=== PATIENT | female | born 1985 | race Caucasian/White ===

== ENCOUNTER 2019-08-10 20:31 | Inpatient (IN) | payer BC, SELFPAY ==
[2019-08-10 22:30] VITALS: BMI 36.2
[2019-08-10 22:31] VITALS: BP 131/100; PULSE 119
[2019-08-10 22:31] LABS: Basophils Percent Auto 0.3 % (0.2-1.2); Eosinophils Absolute Auto 0.1 K/mm3 (0-0.3); Eosinophils Percent Auto 0.4 % (0-4.4); Hematocrit 39.7 % (37.0-47.0); Hemoglobin 13.1 g/dL (12.0-15.0); Immature Granulocyte Absolute 0.07 K/mm3 (0.00-0.031); Immature Granulocyte Percent A 0.6 % (0-0.5); Lymphocytes Absolute Auto 2.01 K/mm3 (0.9-3.2); Lymphocytes Percent Auto 16.6 % (18.3-44.2); Mean Corpuscular Hemoglobin 28.7 pg (26-34); Mean Corpuscular Volume 87.1 fl (80-100); Mean Platelet Volume 11.9 fl (7.4-10.4); Monocytes Absolute Auto 0.7 K/mm3 (0.1-0.6); Monocytes Percent Auto 5.5 % (2.6-8.5); Neutrophils Absolute Auto 9.3 K/mm3 (1.3-6.7); Neutrophils Percent Auto 76.6 % (45.5-73.1); Platelet Count Result 248 k/mm3 (150-375); Red Blood Count 4.56 M/mm3 (4.2-5.4); Red Cell Distribution Width 13.2 % (11.5-14.5); White Blood Count 12.1 K/mm3 (4.5-10.0)
--- NOTE | 2019-08-10 22:31 | LDADM ---
This patient, Alyssia Oliveira, was admitted to Labor/Delivery/Recovery 104 on 08/10/19 at 20:31. Plans for labor, pain management and were discussed with patient. Patient/family oriented to hospital policies and general routines including ID bracelet, bed and alarms, visiting hours, pain management, procedures, bathroom and other care routines, personal items, smoking policy, room service/diet and guest tray routines, infant security routines, and visiting hours. Patient/Family are encouraged to report perceived risks to care and to ask questions if they do not understand what they are told or what they should do. See OBIX for further documentation.
[2019-08-10] MEDS: LACTATED RINGERS 1,000 ML 125 ML IV CONT (22:35)
[2019-08-10] MEDS: OXYTOCIN 30 UNITS/NS 500 ML 30 UNITS/500 ML BAG IV CONT (22:36)
[2019-08-10 23:01] VITALS: BP 143/89; PULSE 101
[2019-08-10 23:31] VITALS: BP 128/78; PULSE 96
--- NOTE | 2019-08-10 23:36 | WPDHPUPDATE1 ---
History and Physical Update Update Date/Time: 08/10/19 23:36 33y/o at 39 weeks gestation who presented in labor. She quickly progressed to 9 cm. AROM was performed - clear. SVE - /-1. Reassuring FHT's GBS - neg History and Physical has been reviewed, including an updated exam of the patient. There are NO changes in the patient's condition. Risks, benefits, and alternatives have been discussed and questions answered. Patient agrees to proceed with procedure.
[2019-08-11] VITALS (8 sets, daily range): BP systolic 117–153; BP diastolic 51–121; PULSE 80–115; RESP 16–18; TEMP 36.6–36.9; O2SAT 100
--- NOTE | 2019-08-11 00:04 | P.PCNOB_ITS ---
OB - Delivery Note Procedure Delivery date: 08/11/19 Intrapartal events: None Induction method: none Delivery augmentation: rupture of membranes Delivery monitor: external FHT and external uterine Route of delivery: Laceration description: Perineal - 2nd Degree Delivery repair: vicryl Estimated blood loss (mL): 400 Anesthesia type: None Disposition: floor [place] Baby Date of : 08/11/19 Time of : 23:44 Weeks of gestation at delivery: 39 Infant gender: Male Weight (pounds): 8 Weight (ounces): 4 presentation: vertex position: Left Occiput Anterior Placenta delivery description: Spontaneous cord vessel description: 3 Vessels score one minute: 9 score five minutes: 9
[2019-08-11] MEDS: IBUPROFEN 600 MG TABLET PO ×3 (01:22→18:00)
[2019-08-11] MEDS: WITCH HAZEL 40 PADS 1 PAD TOPICAL (01:22)
[2019-08-11] MEDS: BENZOCAINE 20% AER SPR (*SP) 56 GM CAN 1 SPRAY TOPICAL (01:22)
[2019-08-11] MEDS: LANOLIN (LANSINOH) 7.5 GM CREAM 1 APPLIC TOPICAL (01:23)
--- NOTE | 2019-08-11 02:15 | OBPPTRN ---
Patient transferred to post room #288 via wheelchair with in crib. Support person present. Oriented to unit, room, information board, rooming in, admission packet and security measures. Patient verbalizes understanding.
--- NOTE | 2019-08-11 04:06 | OBPPTRN ---
Patient transferred to post room # via ( ). Support person present. Oriented to unit, room, information board, rooming in, admission packet and security measures. Patient verbalizes understanding.
--- NOTE | 2019-08-11 07:15 | PM.OBPNVD ---
OB - PN: Subj Subjective Date/time seen: 08/11/19 07:15 Patient comments: no complaints baby status: doing well OB - PN: Obj Data Labs CBC & Chem 7: 08/10/19 22:26 Labs: Laboratory Results - last 24 hr 08/10/19 08/10/19 22:26 22:26 WBC 12.1 H RBC 4.56 Hgb 13.1 Hct 39.7 MCV 87.1 MCH 28.7 MCHC 33.0 RDW 13.2 Plt Count 248 MPV 11.9 H Immature Gran % (Auto) 0.6 H Neut % (Auto) 76.6 H Lymph % (Auto) 16.6 L [place] % (Auto) 5.5 Eos % (Auto) 0.4 Baso % (Auto) 0.3 Lymph # (Auto) 2.01 [place] # (Auto) 0.7 H Eos # (Auto) 0.1 Baso # (Auto) 0.0 Abs Immat Gran (auto) 0.07 H Absolute Neuts (auto) 9.3 H Absolute Nucleated RBC 0.0 Nucleated RBC % 0.0 Blood Type A Positive Antibody Screen Negative OB - PN A/P Plan day: 1 Plan: routine care Comments: continue to monitor blood pressure, call if >160/110 Time Spent With Patient Time: Total time spent is greater than 50% in coordination of care (as documented) at patient's floor/unit and/or counseling patient: Review of Systems Review of Systems: All systems reviewed & are unremarkable except as noted in HPI and below Exam Const: General: comfortable Resp: Effort & Inspection: normal respiratory effort Psych: Appearance: grossly normal Mental Status: mental status grossly normal Affect: normal affect
[2019-08-11 09:29] LABS: Rapid Plasma Reagin Non-Reactive (NonReactive)
[2019-08-11] MEDS: DOCUSATE SODIUM 100 MG CAPSULE PO (10:41)
[2019-08-11] MEDS: MULTIVIT/MIN/PREN/FOL AC/IRON TABLET 1 TAB PO (10:42)
--- NOTE | 2019-08-11 15:15 | PC.NURSE ---
Mother called out for assist feeding. Mother reports first child with complications of latch and low milk supply and mastitis Discussed how shallow latch may impact emptying breast and increased risk for mastitis. Discussed mother should feel milk come in and have a short period of engorgement that resolves within a few days, by day 7or 8 mother should feel empty after feedings. If she continues to feel full after feedings mother should call Services. Reviewed infant feeding cues, frequencies, duration of feedings, feeding elimination flow sheet, and signs of adequate intake. Demonstrated stimulation techniques to wake for feeding. Assisted with infant to breast. Reviewed positioning/alignment in cross cradle, holding breast in U hold and guided asymmetrical latch on. Discussed rational for each. was able to latch correctly. Infant nursed eagerly, with steady draws and occasional swallowing noted. Reviewed signs of a correct latch, effective nursing and suck swallow ratio. was able to maintain latch without discomfort to mother. Nipple care reviewed. Suggested mother continue to stimulate during feeding to increase intake and assist infant with maintaining deep latch. Instructed mother to call out for RN assistance if she is unable to latch for feeding or she has discomfort with nursing. Instructed feeding should be initiated three hours from start of last feeding or if feeding cues are noted before. Mother voiced understanding of information shared.
[2019-08-12] MEDS: IBUPROFEN 600 MG TABLET PO ×2 (04:28→11:47)
[2019-08-12] MEDS: DOCUSATE SODIUM 100 MG CAPSULE PO (04:28)
--- NOTE | 2019-08-12 05:17 | PC.NURSE ---
Patient viewed the discharge video Mother & Baby Care, The First Two Weeks . Patient was given the opportunity and encouraged to ask questions. Patient verbalized understanding of information shared and has been given the mother/baby guide for home reference.
[2019-08-12 05:29] LABS: Hematocrit 35.8 % (37.0-47.0); Hemoglobin 11.9 g/dL (12.0-15.0)
--- NOTE | 2019-08-12 07:30 | PC.NURSE ---
PT introductions made and plan of care discussed per post . pain management, breast feeding, daily care activities and pending discharge to home> PT verbalized understanding of such care.
--- NOTE | 2019-08-12 07:40 | PM.OBPNVD ---
OB - PN: Subj Subjective Date/time seen: 08/12/19 07:40 Patient comments: no complaints, pain well controlled and tolerating diet OB - PN: Obj Data Labs CBC & Chem 7: 08/12/19 04:34 Labs: Laboratory Results - last 24 hr 08/10/19 08/12/19 22:26 04:34 Hgb 11.9 L Hct 35.8 L RPR Non-reactive OB - PN A/P Plan day: 2 Plan: routine care and discharge home Time Spent With Patient Time: Total time spent is greater than 50% in coordination of care (as documented) at patient's floor/unit and/or counseling patient: Exam Const: General: comfortable and no acute distress Resp: Effort & Inspection: normal respiratory effort Auscultation: no rales, no rhonchi and no wheezes Cardio: Rate: regular rate Heart sounds: no click, no murmurs and no rubs GI: GI Palp: Yes Soft to palpation and No Tenderness to palpation present (GI) Auscultation: normal bowel sounds Extrem: General: normal to inspection, no pedal edema and no calf tenderness
--- NOTE | 2019-08-12 07:40 | PM.OBDSVD ---
DS: Diagnosis Discharge Diagnosis (1) Term delivered: Code(s): O80 - Encounter for full-term uncomplicated delivery Status: Acute OB - DS: Summary OB Procedures : None OB Procedures Intrapartum: Spontaneous Vag Delivery OB Procedures: : None Peripartum Data Delivery Method: Natural Vaginal Laceration description: Perineal - 2nd Degree complications: none Status at Discharge Functional status at discharge: independent ambulation Time Spent with Patient Time attestation: Total time spent providing and/or coordinating discharge services: DS: Data Data Completed and Pending Labs on day of discharge: Labs from last 24 hours 08/12/19 08/10/19 04:34 22:26 Hgb 11.9 L Hct 35.8 L RPR Non-reactive Discharge Plan Discharge Attending physician on discharge: Emma Syed Discharging Clinician: Emma Syed Patient Disposition: Home, Self-Care Activity: pelvic rest Diet: regular Patient Instructions: Antibiotic Form Stand Alone Forms: General Discharge Information Follow-up/Referrals: Emma Syed MD [Physician] - Discharge Medications: Continued Slow Fe 142 mg (45 mg iron) Tablet Extended Release 142 mg PO ONCE RF: 0 PNV [id number] fumarate-FA [] 28 mg iron- 800 mcg Tablet 1 tablet PO DAILY RF: 0 Date of admission: 08/10/19 20:31 Primary Care Provider: UNKNOWN,DOCTOR Admitting Provider: Emma Syed Attending physician on admission: Emma Seyd
[2019-08-12 08:05] VITALS: BP 120/81; PULSE 73; RESP 18; TEMP 37.3; O2SAT 98
--- NOTE | 2019-08-12 09:25 | PC.NURSE ---
Mother is able to independently latch infant with appropriate positioning/alignment. She denies any nipple discomfort, is feeding as required and waking to feed if needed. has had 8 effective feedings in the past 24 hours, and is currently meeting outcomes for weight, output, jaundice and feeding frequencies. Mother states she feels confident to continue effective at home. Reviewed transition to breast milk, signs of adequate intake, and engorgement/relief. Instructed to call ICP if intake/output less than required. Reviewed regular medications mother is taking. Information provided per Pat. Reviewed community resources on the [facility] website and in the Mom/Baby guide. Information on outpatient services provided. Mother has no further questions at this time.
[2019-08-12] MEDS: MULTIVIT/MIN/PREN/FOL AC/IRON TABLET 1 TAB PO (11:48)
[2019-08-12 12:14] VITALS: PULSE 73; RESP 18; O2SAT 98
--- NOTE | 2019-08-12 12:45 | PC.NURSE ---
PT received discharge instructions per protocol and verbalized understanding of such instructions.
--- NOTE | 2019-08-12 13:15 | PC.NURSE ---
PT discharged to home ambulatory accompanied by spouse and and taken to waiting car. Followup appts confirmed
[2019-08-13 09:19] VITALS: BP 144/79; PULSE 86; RESP 20; TEMP 36.8
== END 2019-08-12 13:10 | disposition home or self-care (01) | DRG 807 ==
LOC: ANHLDR 22:22 → ANHOB2 08-11 03:01
PROVIDERS: Admitting Provider Obstetrics & Gynecology; Visit Provider Obstetrics & Gynecology
DX: O70.1 Second degree perineal laceration during delivery (principal); Z37.0 Single live birth; Z3A.39 39 weeks gestation of pregnancy
CPT/HCPCS: 36415; 85014; 85018; 85025; 86592; 86850; 86900; 86901; A9270; J2590; J7120